=== PATIENT | male | born 1955 | race African-American/Black ===

== ENCOUNTER 2018-12-08 12:14 | Emergency (ER) | payer OTHER ==
[~2018-12-08] VITALS: Ht 175.3 cm; Wt 76.2 kg
[2018-12-08] MEDS ORDERED: NAPROSYN500 MG PO (13:53)
[2018-12-08 14:28] VITALS: BP 163/85
== END 2018-12-08 14:28 | disposition home or self-care (01) ==
LOC: ER 12:14
DX: S93.401A Sprain of unspecified ligament of right ankle, initial encounter (principal); X50.0XXA Overexertion from strenuous movement or load, initial encounter; Y92.89 Other specified places as the place of occurrence of the external cause; Y93.89 Activity, other specified; Y99.8 Other external cause status